=== PATIENT | male | born 1985 | race Two or more races ===

== ENCOUNTER 2017-07-28 08:35 | Emergency (ER) | payer SELFPAY ==
[~2017-07-28] VITALS: Ht 167.6 cm; Wt 67.0 kg
[2017-07-28 08:36] VITALS: BP 152/92
[2017-07-28] MEDS ORDERED: FAMOTIDINE 20 MG TABLET PO ONE (09:00)
[2017-07-28] MEDS ORDERED: MAALOX/HYOSCYAMINE/LIDOCAINE 45 ML BTL PO ONE (09:00)
[2017-07-28] MEDS ORDERED: PLEASE ENTER ALLERGIES MC SCH (09:30)
== END 2017-07-28 09:57 | disposition left against medical advice (07) ==
LOC: ED 09:51
DX: R10.9 Unspecified abdominal pain (principal)
CPT/HCPCS: 99281